=== PATIENT | male | born 1960 | race Caucasian/White ===

== ENCOUNTER 2021-01-28 18:37 | Emergency (ER) | payer MEDICARE, MEDICAID, SELFPAY ==
--- NOTE | 2021-01-28 18:40 | ED.SKABFB ---
HPI - Skin/Abscess/Foreign Bdy General Chief complaint: Skin/Abscess/Foreign Body Stated complaint: bump left wrist Time Seen by Provider: 01/28/21 18:40 Source: patient and RN notes reviewed History of Present Illness HPI narrative: Patient is a 60-year-old male who presents the urgent care with his caregiver with complaints of a bump to the left wrist. Caregiver states that she noticed it today after another client pointed it out. States that the nurse told him to have it evaluated. Denies of any recent fevers. They have not put anything on the area. No other acute complaints. No acute distress noted. Patient and caregiver aware of the plan of care. Some parts of this dictation were generated by voice recognition software and may contain typographical and/or grammatical inaccuracies. Related Data Home Medications Medication Instructions Recorded Confirmed amlodipine 2.5 mg tablet 2.5 mg PO DAILY 12/26/20 12/26/20 aspirin 81 mg tablet,delayed 81 mg PO DAILY 12/26/20 12/26/20 release bisacodyl 5 mg tablet,delayed 5 mg PO ONCE 12/26/20 12/26/20 release citalopram 20 mg tablet 20 mg PO DAILY 12/26/20 12/26/20 divalproex 125 mg tablet,delayed 125 mg PO Q8H 12/26/20 12/26/20 release lisinopril 40 mg tablet 40 mg PO DAILY 12/26/20 12/26/20 loratadine 10 mg capsule 10 mg PO DAILY 12/26/20 12/26/20 solifenacin 5 mg tablet 5 mg PO DAILY 12/26/20 12/26/20 Allergies Allergy/AdvReac Type Severity Reaction Status Date / Time No Known Allergies Allergy Verified 12/26/20 13:02 Review of Systems Review of Systems: CONSTITUTIONAL: Denies fever, chills, or sweats. EYES: Denies visual changes, redness, or discharge. ENT: Denies rhinorrhea, congestion, sore throat, or otalgia. CARDIOVASCULAR: Denies chest pain, palpitations, or edema. RESPIRATORY: Denies cough or dyspnea. GASTROINTESTINAL: Denies abdominal pain, nausea, vomiting, or diarrhea. GENITOURINARY: Denies dysuria or hematuria. SKIN: Reports of a lump to the left wrist. Denies rash or itching. MUSCULOSKELETAL: Denies back pain, joint pain, or myalgia. NEUROLOGIC: Denies headache, numbness, or weakness. All other systems reviewed are negative, except as documented in HPI. PMFSH Comments At the time of my signature, I reviewed and agree with the nursing past medical, surgical, social, and family history. There is no relevant family history pertinent to the patient complaint. Exam Narrative: GENERAL: This is a well-nourished, well-developed patient, in no apparent distress. HEAD: normocephalic, atraumatic. EYES: PERRL. Sclera clear/white. Vision is grossly intact. EARS: External ears normal NOSE: External nose normal with no obvious nasal discharge, nares without redness, no rhinorrhea. THROAT: Mucous membranes moist NECK: Neck supple CARDIOVASCULAR: Regular rate and rhythm without murmurs, gallops, or rubs. RESPIRATORY: Clear to auscultation. Breath sounds equal bilaterally. No wheezes, rales, or rhonchi. SKIN: Noninfected folliculitis noted to the dorsal aspect of the left wrist, scabbed. Warm, intact with no suspicious lesions or rash, good texture and turgor. NEURO: awake, alert, and oriented to person, place and time. There were no obvious focal neurologic abnormalities. EXTREMITIES: No clubbing, cyanosis, or edema. Course Vital Signs Vital signs: Vital Signs Temperature 97.9 F 01/28/21 18:49 Pulse Rate 81 01/28/21 18:49 Respiratory Rate 16 01/28/21 18:49 Blood Pressure 145/95 H 01/28/21 18:49 Pulse Oximetry 98 01/28/21 18:49 Temperature 97.9 F 01/28/21 18:49 Pulse Rate 81 01/28/21 18:49 Respiratory Rate 16 01/28/21 18:49 Blood Pressure 145/95 H 01/28/21 18:49 Pulse Oximetry 98 01/28/21 18:49 Reviewed-patient is informed that they may have pre-hypertension or hypertension based on a blood pressure reading in the department. I recommend the patient call the primary care provider listed on their discharge instructions o
[2021-01-28 18:49] VITALS: BP 145/95; PULSE 81; RESP 16; TEMP 36.6; O2SAT 98
== END 2021-01-28 19:03 | disposition home or self-care (01) ==
PROVIDERS: Emergency Provider Nurse Practitioner Family
DX: L73.9 Follicular disorder, unspecified (principal); I10 Essential (primary) hypertension
CPT/HCPCS: 99213; G0463

== ENCOUNTER 2024-08-25 00:07 | Day surgery (SDC) | payer MEDICARE, MEDICAID, SELFPAY ==
[2024-08-13 13:36] VITALS: BMI 32.0
--- NOTE | 2024-08-13 13:58 | PC.NURSE ---
Report to the Outpatient Waiting Room, entrance under the green pavilion located off [facility], at time _0630_ on date _[id number]_. Planned Procedure Time: _0830_.? Time changes happen often and if your time is changed the preop area will call you the afternoon before. - You and your visitor will be asked to self-screen and do not enter if you have any COVID symptoms. Please call surgeon if you need to reschedule. - A mask is optional within the hospital at this time. Patients may have clear liquids (water, carbonated beverages, clear teas, apple juice) until 3 hours prior to surgery with a maximum of 20 ounces. - No food from midnight until time of surgery and no smoking, or chewing tobacco (or any form of nicotine). No chewing gum, candy or mints. Take only the following medications with a SIP of water on the morning of surgery: ____Amlodipine and Citalopram____ DO NOT STOP ANY OF YOUR OTHER PRESCRIPTION MEDICATIONS PRIOR TO SURGERY EXCEPT THE FOLLOWING Hold all vitamins and supplements for 3 days per anesthesiologist. Medications to discontinue per physician Date to take last vwun___[id number]___ Please no make-up, nail algerian, hairspray, perfume, deodorant, or body powder the day of surgery.? No jewelry (including any body piercings) or valuables the day of surgery, leave them at home.? Please take a shower or bath the night before, or the morning of, surgery with an antibacterial soap.? Wear comfortable, loose fitting clothing.? - Jewelry must be removed prior to entering the operating room.? Rings and piercings that are not removed may be cut off. - The hospital will not accept responsibility for valuables.? - Please leave all valuables, including medications, at home the day of surgery. If you are going home after surgery, a licensed tanker driver must drive you home.? - NO public transportation without another adult if you receive anesthesia. - We recommend that an adult stay with you for 24 hours following discharge. - We also recommend that you do not drive, make important decision, drink alcoholic beverages, or take any drugs that were not prescribed by your health care provider for at least 24 hours after your discharge time. Follow any additional instructions given to you from your surgeon. Telephone instructions given to __Charlette custodial.__and asked if any additional questions and then verbalized understanding. Patient advised to call surgeon office or pre surgery nurse liaison [phone] if any additional questions.
--- NOTE | 2024-08-13 14:05 | PC.NURSE ---
Report to the Outpatient Waiting Room, entrance under the green pavilion located off [facility], at time _0630_ on date _[id number]_. Planned Procedure Time: _0830_.? Time changes happen often and if your time is changed the preop area will call you the afternoon before. - You and your visitor will be asked to self-screen and do not enter if you have any COVID symptoms. Please call surgeon if you need to reschedule. - A mask is optional within the hospital at this time. - No food or drink from midnight until time of surgery and no smoking, or chewing tobacco (or any form of nicotine). No chewing gum, candy or mints. Take only the following medications with a SIP of water on the morning of surgery: ___Amlodipine and Citalopram DO NOT STOP ANY OF YOUR OTHER PRESCRIPTION MEDICATIONS PRIOR TO SURGERY EXCEPT THE FOLLOWING Hold all vitamins and supplements for 3 days per anesthesiologist. Medications to discontinue per physician Date to take last twwy___[id number]___ Please no make-up, nail kyrgyz, hairspray, perfume, deodorant, or body powder the day of surgery.? No jewelry (including any body piercings) or valuables the day of surgery, leave them at home.? Please take a shower or bath the night before, or the morning of, surgery with an antibacterial soap.? Wear comfortable, loose fitting clothing.? - Jewelry must be removed prior to entering the operating room.? Rings and piercings that are not removed may be cut off. - The hospital will not accept responsibility for valuables.? - Please leave all valuables, including medications, at home the day of surgery. If you are going home after surgery, a licensed taxi cab driver must drive you home.? - NO public transportation without another adult if you receive anesthesia. - We recommend that an adult stay with you for 24 hours following discharge. - We also recommend that you do not drive, make important decision, drink alcoholic beverages, or take any drugs that were not prescribed by your health care provider for at least 24 hours after your discharge time. Follow any additional instructions given to you from your surgeon. Telephone instructions given to __Guy intermediate.__and asked if any additional questions and then verbalized understanding. Patient advised to call surgeon office or pre surgery nurse liaison [phone] if any additional questions.
--- OUTSIDE RECORDS SUMMARY | 2024-08-25 00:12 | XMS_ITS ---
Author Organization [facility] [employer] / [employer] [facility] Address [address] [place] [address] [address] Care Team Providers Care Ticket Counter Name Role Phone Francois MAR, Freddie Primary Care Provider Carmen Rodríguez Unavailable [phone] Blank Borges Unavailable [phone] Social History Sex Assigned At : Social History Observation Description Sex Assigned At Male Encounters Encounter Location Date Provider Diagnosis [facility] [employer] [place] [id number] [facility] [address] [facility] [address] [place] [address] 06/09/2024 Blank Borges Plan Of Treatment Next Appt Details Provider Name:Carmen kaba, 09/28/2024 01:00:00 PM, [facility] [facility] [address] [address], [facility] [address], [place], [address], Progress Notes * ELAN ELLISOB:1960 (64 yo M)Acc No.[id number]:06/09/2024 Patient: SOUMYA VACA Provider: MIKE MACK :1960 A ge:63 Y S ex:Male Date:06/09/2024 Address: [address] [facility] Pcp:Freddie MAR Subjective: * Chief Complaints: * * Medical History: Objective: * Vitals: Assessment: Plan: * Treatment: * Billing Information: * Visit Code: * Procedure Codes: * Electronic signature of MIKE Adams on 08/25/2024 at 12:11 AM CDT Sign off status: Pending * Provider: MIKE MACK Date: 0 06/09/2024 Generated for Savanah sahh/Marcy/Radha on: 0 08/25/2024 12:11 AM CDT
--- OUTSIDE RECORDS SUMMARY | 2024-08-25 00:12 | XMS_ITS ---
Author Organization [facility] [employer] Address [address] [place] [address] Care Team Providers Care Hematologist Name Role Phone Freddie Yu Primary Care Provider UnavailCarmen Joshua Unavailable [phone] Blank Borges Unavailable [phone] Allergies No Known Allergies REASON FOR VISIT follow up medication management Medications Medication SIG (Take, Route, Frequency, Duration) Notes Start Date End Date Status BISACODYL 5 MG TABLET *[facility] for [facility] and Interaction Alerts* 09/08/2023 Active Naproxen 500 MG Oral 09/08/2023 Act lisbet White Petrolatum External 09/08/2023 Ac tive Sodium Fluoride 1.1 % Dental Paste *[facility] for [facility]Rx and Interaction Alerts* 09/08/2023 Active Robafen *[facility] for eRX* 09/08/2023 Active MUPIROCIN CALCIUM 2 % TOPICAL CREAM *Reorder from [facility] for eRx and Interaction Alerts* 09/08/2023 Active Omeprazole 20 MG Oral for 30 Days Active Solifenacin Succinate 5 MG Oral for 30 Days Active Oyster Shell Calcium w/D 500-5 MG-MCG Oral for 30 Days Active Sodium Fluoride 5000 PPM 1.1 % Dental for 20 Days Active Citalopram Hydrobromide 20 MG 1 tablet Oral Once a day for 30 days Active amLODIPine Besylate 2.5 MG Oral for 30 Days Active Aspirin Low Dose 81 MG Oral for 30 Days Active Lisinopril 40 MG Oral for 30 Days Active Cetirizine HCl 10 MG Oral for 30 Days Active Divalproex Sodium 125 MG 2 capsules at bedtime Oral daily for 30 days Active Social History Sex Assigned At : Social History Observation Description Sex Assigned At Male Section Notes: Social History Substance Use Do you or have you ever smoked tobacco?: Never smoker How much tobacco do you smoke?: None Do you or have you ever used any other forms of tobacco or nicotine?: No Do you or have you ever used e-cigarettes or vape?: Never used electronic cigarettes What was the date of your most recent tobacco screening?: 09/08/2023 Has tobacco cessation counseling been provided?: No What is your level of alcohol consumption?: None How many years have you consumed alcohol?: 0 Do you use any illicit or recreational drugs?: No Which illicit or recreational drugs have you used?: None Have you used IV drugs?: No What is your level of caffeine consumption?: Moderate Education and Occupation What is the highest grade or level of school you have completed or the highest degree you have received?: Don't know Are you currently employed?: No Who is your employer?: No Marriage and Sexuality What is your relationship status?: Single Are you sexually active?: No How many children do you have?: 0 Home and Environment Are there any guns present in your home?: No Advance Directive Do you have an advance directive?: Yes Do you have a medical power of workers compensation defense attorney?: Yes Vital Signs Height 66.00 in 03/09/2024 Height-cm 167.64 cm 03/09/2024 Encounters Encounter Location Date Provider Diagnosis [facility] [address] [address] 03/09/2024 Blank Borges 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 continue current meds and monitor did get labs done but does not have copy, please fax copy to [phone] f/u in 3 months, earlier if concerns med: cont depakote 250mg qhs 03/09/2024 Generalized anxiety disorder (ICD-10 - F41.1) cont citalopram 20mg daily 03/09/2024 Moderate intellectual disabilities (ICD-10 - F71) supportive care 03/09/2024 Other care home (current) drug therapy (ICD-10 - Z79.899) Plan Of Treatment Medication Medication Name Sig Start Date Stop Date Notes Citalopram Hydrobromide 20 MG 1 tablet O ral Once a day for 30 days Divalproex Sodium 125 MG 2 capsules at b edtime Oral daily for 30 days Treatment Notes Assessment Notes Organic mood disorder resides at alf Katty alf not being able to talk to mom (health problems), not in routine like used to, may be having increase in behaviors/acting out, discuss support. continue current meds and monitor did get labs done but does not have copy, please fax copy to [phone] f/u in 3 months, earlier if concerns med: cont depakote 250mg qhs Generalized anxiety disorder cont citalo pram 20mg daily Moderate intellectual disabilities suppo rtive care Next Appt Details Follow Up: 3 Months, Reason: Provider Name:Carmen kaba, 09/28/2024 01:00:00 PM, [address], [place] [address], [place], [address], Progress Notes * ELAN ELLISOB:1960 (63 yo M)Acc No.[id number]:03/09/2024 Patient: Luba NORMAN SOUMYA Provider: MIKE MACK :1960 A ge:63 Y S ex:Male Date:03/09/2024 Address:[address] [place], [place] [address] Subjective: * Chief Complaints: * 1 . Follow up medication management. * HPI: H istory of Presenting Problem: 63 y/o male presents to follow up for depression, anxiety and intellectual disability. He resides at a alf. Associated past symptoms of verbal aggression, irritability, anxiety, biting self. Hx of talking to self that seems to be mistaken by new staff for hallucinations. Likes to watch ge girls. He says he is pretty good . Denies sad or worried. I'm happy . Sleep good. Denies causing trouble. Staff: he likes to go in the refrigerator and get stuff open and leave the wrappers out. We have talked about it and think have understanding but he does it again. He will skip shower, and if staff ask he will sometimes change his clothes and put cologne on like he took a bath. That's mostly it. No aggression. hasn't been able to talk to his mom lately as she is going through health problems. he says happy, but think he is probably missing h is mom. medical: had PCP appt and had labs done. G eneral Follow Up: ongoing notes: PCP labs 02/11/23, lipid HDL 36 LDL 116, CMP-glucose 88, CBC WNL, TSH 1.52 02/12/22 lipid panel, CMP-glucose 77.3 depakote 14.7 does not understand questions r/t psychosis; at one point thought hallucinations, but then determined not to be. 01/08/23 (prior visit) restarted low dose abilify last visit for behaviors, aggression, possible, hallucinations/unclear, and sad. 01/08 Staff report they were upset about adding abilify as supervisor shearing brought him last time and went by mostly by what one staff member was saying, exaggerating, and then supervisor shearing told them he saw himself. They had meeting after felt like they are punishing him for things happening in the house and reactions and new staff. She reports been working on these things for years. Was no worse. The supervisor shearing and staff person are no longer there. And considering all the things going on at the house, thinks he was doing ok. Dad in September 2021. * ROS: P sychiatric: Comments Neri OKEEFE for details. * Medical History: P roblems: Generalized anxiety disorder, Hallucinations, Intellectual functioning disability, Mental retardation, Obesity, Organic mood disorder, Recurrent major depressive episodes, mild, ,. * Surgical History: D enies Past Surgical History. * Hospitalization/Major Diagno stic Procedure: D enies Past Hospitalization. * Family History: unavailable. * Social History: M igrated Social History: M igrated Social History: Alcohol Intake: None 04/06/2018,Tobacco Years: Never smoker 04/06/2018. S ocial History Substance Use Do you or have you ever smoked tobacco?: Never smoker How much tobacco do you smoke?: None Do you or have you ever used any other forms of tobacco or nicotine?: No Do you or have you ever used e-cigarettes or vape?: Never used electronic cigarettes What was the date of your most recent tobacco screening?: 09/08/2023 Has tobacco cessation counseling been provided?: No What is your level of alcohol consumption?: None How many years have you consumed alcohol?: 0 Do you use any illicit or recreational drugs?: No Which illicit or recreational drugs have you used?: None Have you used IV drugs?: No What is your level of caffeine consumption?: Moderate Education and Occupation What is the highest grade or level of school you have completed or the highest degree you have received?: Don't know Are you currently employed?: No Who is your employer?: No Marriage and Sexuality What is your relationship status?: Single Are you sexually active?: No How many children do you have?: 0 Home and Environment Are there any guns present in your home?: No Advance Directive Do you have an advance directive?: Yes Do you have a medical power of workers compensation defense attorney?: Yes. * Medications: T aking amLODIPine Besylate 2.5 MG Tablet Oral , Taking Cetirizine HCl 10 MG Tablet Oral , Taking Aspirin Low Dose 81 MG Tablet Chewable Oral , Taking Lisinopril 40 MG Tablet Oral , Taking Omeprazole 20 MG Capsule Delayed Release Oral , Taking Solifenacin Succinate 5 MG Tablet Oral , Taking Oyster Shell Calcium w/D 500-5 MG-MCG Tablet Oral , Taking Sodium Fluoride 5000 PPM 1.1 % Paste Dental , Taking MUPIROCIN CALCIUM 2 % TOPICAL CREAM , Notes to Pharmacist: *Reorder from [facility] for eRx and Interaction Alerts*, Taking BISACODYL 5 MG TABLET , Notes to Pharmacist: *Reorder from [facility] for eRx and Interaction Alerts*, Taking Naproxen 500 MG Tablet Oral , Taking White Petrolatum Ointment External , Taking Sodium Fluoride 1.1 % Dental Paste , Notes to Pharmacist: *Reorder from [facility] for eRx and Interaction Alerts*, Taking Robafen , Notes to Pharmacist: *Pick strength-form from [facility] for eRX*, Taking Divalproex Sodium 125 MG Capsule Delayed Release Sprinkle 2 capsules at bedtime Oral daily , Taking Citalopram Hydrobromide 20 MG Tablet 1 tablet Oral Once a day * Allergies: N .K.D.A. Objective: * Vitals: H t: 66.00 in, Ht-cm: 167.64 cm. * Examination: P sychiatry: C onstitutional: General Appearance alert, c lean, B ehavior: c ooperative, c michel ( squints) Psychiatric: Speech: is dysarthric Thought Processes g oal-directed thought process ( distractable) Thought Content: N o suicidal ideations Abnormal or Psychotic thoughts n o hallucinations Mood: euthymic Affect: c ongruent to thought content Insight: is unaware of psychiatric problems Judgment: i mpaired Orientation: o riented to person. Assessment: * Assessment: 1. O rganic mood disorder - F06.30 (Primary) 2 . G eneralized anxiety disorder - F41.1 3 . M oderate intellectual disabilities - F71 4 .?Other supervisor intermediates (current) drug therapy - Z79.899 Plan: * Treatment: 2. G eneralized anxiety disorder Refill Citalopram Hydrobromide Tablet, 20 MG, 1 tablet, Oral, Once a day, 30 days, 30 Tablet, Refills 2. Notes: cont citalopram 20mg daily 3. M oderate intellectual disabilities Notes: supportive care * Procedure Codes: G 8510 NEG SCR D PT NOT ELIG F/U/PLN DOC * Follow Up: 3 Months * Billing Information: * Visit Code: 28167 OFFICE OUTPATIENT VISIT 25 MINUTES DETAILED HISTORY AND EXAM/MODERATE MEDICAL DECISION MAKING. * Procedure Codes: G8510 NEG SCR D PT NOT ELIG F/U/PLN DOC. * Sign off status: Completed true * Provider: MIKE MACK Date: Generated for Savanah shah/Marcy/Radha on: 0 08/25/2024 12:12 AM CDT History and Physical Notes * Examination Category Sub-Category Detail Notes Category Not es Psychiatry Constitutional: General Appearance alert, clean, Behavior: cooperative, calm (squints) Psychiatric: Speech: is dysarthric Thought Processes goal-directed thought process (distractable) Thought Content: No suicidal ideations Abnormal or Psychotic thoughts no hallucinations Mood: euthymic Affect: congruent to thought content Insight: is unaware of psychiatric problems Judgment: impaired Orientation: oriented to person
--- OUTSIDE RECORDS SUMMARY | 2024-08-25 00:12 | XMS_ITS | Clinical Summary ---
Author Organization [facility] Address [address] [place] [address] Phone Care Team Providers Care Senior Budget Analyst Name Role Phone Alejandra Stevens October PAC Unavailable [phone] Freddie Parrish PAC Primary Care Provider Allergies No known active allergies Medications citalopram (CELEXA) 20 MG Tablet Take 20 mg by mouth daily. 11/06/19 17 Active divalproex (DEPAKOTE SPRINKLE) 125 MG Capsule Delayed Release Sprinkle Take 250 mg by mouth nightly. 11/06/19 17 Active aspirin 81 MG Chewable Tablet Take 1 Tab by mouth daily. 100 Tab 12/14/19 17 Active lisinopril (PRINIVIL, ZESTRIL) 40 MG Tablet Take 1 Tab by mouth daily. 30 Tab 6 12/26/19 17 Active Calcium Carbonate-Vitamin D (OYSTER SHELL CALCIUM/D) 500-200 MG-UNIT Tablet Take 1 Tab by mouth 3 times daily. 90 Tab 5 01/09/20 17 Active solifenacin (VESICARE) 5 MG Tablet Take 1 Tab by mouth daily. 30 Tab 5 01/09/20 17 Active amLODIPine (NORVASC) 2.5 MG TabletIndications :Essential hypertension Take 1 Tab by mouth daily. 30 Tab 3 11/11/19 18 Active guaiFENesin (ROBITUSSIN) 100 MG/5ML Syrup Take 10 mL by mouth every 4 hours as needed. Active White Petrolatum (WHITE PETROLEUM) Gel APPLY TOPICALLY TO AFFECTED AREA 2 TIMES A DAY NEEDED *MAX 2 APPL/24 HRS- CALL MD IF SYMPTOMS PERSIST >48 HRS* 368 g 10 07/07/19 20 Active bisacodyl EC (DULCOLAX) 5 MG Tablet Delayed Response Take 5 mg by mouth daily as needed. Take 2 tablets by mouth 1x w/ 8 ox water as needed *do not chewif no BM, may repaet in 24 hrs, max doeses/ 48 hours & call MD* Active bismuth subsalicylate (PEPTO-BISMOL) 262 MG/15ML Suspension Take 30 mL by mouth every 6 hours as needed. Take 30 ml by mouth as needed for each loose stool / upset stomach *max 8 doses / 24 hours- notify MD is symptoms persist <48 hours Active diphenhydrAMINE (BENADRYL) 25 MG Capsule Take 25 mg by mouth every 6 hours as needed. Take 1 capsule by mouth every 6 hours as needed for cold symptoms / minor allergic reactions * max 4 doses/ 24 hours- call MD if symptoms persist > 48 h ours Active acetaminophen (TYLENOL) 325 MG Tablet Take 325 mg by mouth every 4 hours as needed. Take 2 tablets by mouth every 4 hours as needed for MANN/Mild pain / fever * max 6 doses/ 24 hours - if persists>48 hours notify MD Active aluminum & magnesium hydroxide-simethi cone (MAALOX, MYLANTA) 200-200-20 MG/5ML Suspension Take 30 mL by mouth every 6 hours as needed. Take 30 ml by mouth very 4 hours s needed for indigestion* max 6 doses / 24 hours- call MD if symptoms persist > 48 hours Active Neomycin-Bacitrac in-Polymyxin (HCA TRIPLE ANTIBIOTIC OINTMENT EX) by Apply externally route. Apply topically to minor wounds twice daily as needed until healed Active omeprazole (PriLOSEC) 20 MG CAPSULE DELAYED RELEASEIndication s:Pain of upper abdomen Take 1 Capsule by mouth daily. 90 Capsule 3 05/29/20 21 Active Calcium Carb-Cholecalcife rol (Oyster Shell Calcium w/D) 500-200 MG-UNIT Tablet Take by mouth. Activ e ALPRAZolam (XANAX) 0.25 MG Tablet 08/03/19 22 Active cetirizine (ZyrTEC) 10 MG TabletIndications :Chronic allergic rhinitis Take 1 Tablet by mouth daily. 90 Tablet 3 02/08/20 22 Active Sodium Fluoride 5000 PPM 1.1 % Gel 01/07/20 23 Active hydrocortisone 1 % CreamIndications: Itching Apply 2 times daily as needed for Itching. Application Site: bilateral forearms. 45 g 02/18/20 24 Active ibuprofen (MOTRIN) 800 MG TabletIndications :Left knee pain, unspecified chronicity Take 1 Tablet by mouth every 8 hours as needed for Mild or more severe pain. 90 Tablet 1 07/08/19 25 Active mupirocin (BACTROBAN) 2 % Ointment Apply 2 times daily. 06/29/19 25 Active naproxen (NAPROSYN) 500 MG Tablet Take 1 Tablet by mouth 2 times daily (with meals) for 14 days. 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 Recurrent major depressive disorder, in remissio n 07/14/2018 Mental disorder 07/14/2018 Overactive bladder 07/14/2018 Nutritional deficiency 07/14/2018 HTN (hypertension) 11/10/2017 Resolved Problems Problem Noted Date Diagnosed Date Resolved Date Age-related osteoporosis wit hout current pathological fracture 07/14/2018 02/01/2020 Encounters Date Type Department Care Team Description 08/09/2024 Telephone [facility] Primary [facility] [address] [place] [address] Freddie Parrish, PAC Results 07/12/2024 3:00 PM SHAMPOO TECHNICIAN Office Visit [facility] [place] [address] [place] [address] Katie Alexander, TONGUE AND GROOVE MACHINE FEEDER, RODEO PERFORMER Moderate intellectual disability (Primary Dx); Acute pain of left knee Discharge Disposition: Discharged to home or Selfcare 07/12/2024 Travel 07/08/2024 Telephone [facility] [address] [place] [phone] Freddie Parrish, PAC Medication Management 07/07/2024 11:45 AM SHAMPOO TECHNICIAN Ancillary Procedure [facility] [place] [address] [place] [address] Mayo Alexander PAC Sprain of left knee, unspecified ligament, initial encounter Discharge Disposition: Discharged to home or Selfcare 07/07/2024 11:05 AM SHAMPOO TECHNICIAN Urgent Care Visit [facility] [address] [place] [address] Mayo Alexander PAC Sprain of left knee, unspecified ligament, initial encounter (Primary Dx); Contusion of left knee and lower leg, initial encounter Discharge Disposition: Discharged to home or Selfcare 07/07/2024 Results Follow-Up [facility] [address] [place] [address] Mayo Alexander PAC 07/07/2024 Travel from Last 3 Months Immunizations Immunization Administration Dates Next Due Covid-19, Mrna, Lnp-s, Pf, 1 00 Mcg Or 50 Mcg Dose (MODERNA) 04/24/2021 Influenza Vaccine 03/02/2014,03/02/2013 Influenza Vaccine greater than 3 yrs 02/27/2024, 03/02/2018 Influenza Vaccine, Quadrivalent, PF 02/01,03/14/2022,03/19/2021,2016 Influenza, Injectable, Mdck,quadrivalent,with Preservative 03/26/2019 Influenza, Injectable, Quadrivalent 04/22/2016 Influenza, Seasonal, Injecta ble, Undefined 03/16/2015,02/25/2014,03/25/2013 Pneumococcal Vaccine Adult - 23 Valent 06/02/2007 TDAP Vaccine 08/12/2007 Td Vaccine (preservative free) 12/16/2018 Tetanus Vaccine 06/02/2007 Zoster Vaccine Recombinant 2023,02/20/2023 Social History Tobacco Use Types Packs/Day Years Used Date Smoking Tobacco: Never Smokeless Tobacco: Never Tobacco Cessation:Counseling Given: Not Answered Alcohol Use Standard Drinks/Week Comments No 0 (1 standard drink = 0.6 oz pur e alcohol) PHQ-2 Answer Date Recorded Total Score - Questions 1-9 0 07/03 Sexually Active Control Partners Comments Not Currently Sex and Gender Information Value Date Recorded Sex Assigned at Not on file Legal Sex Male 7:38 PM CDT Gender Identity Not on file Sexual Orientation Not on file Last Filed Vital Signs Vital Sign Reading Time Taken Comments Blood Pressure 128/82 07/12/2024 2:50 PM SHAMPOO TECHNICIAN Pulse 73 07/12/2024 2:50 PM SHAMPOO TECHNICIAN Temperature 36.7 C (98 F) 07/12/2024 2:50 PM SHAMPOO TECHNICIAN Respiratory Rate 20 07/12/2024 2:50 PM SHAMPOO TECHNICIAN Oxygen Saturation 96% 07/12/2024 2:50 PM SHAMPOO TECHNICIAN Inhaled Oxygen Concentration - - Weight 91.6 kg (202 lb) 07/12/2024 2:50 PM SHAMPOO TECHNICIAN Height 170.2 cm (5' 7 ) 07/12/2024 2:50 PM SHAMPOO TECHNICIAN Body Mass Index 31.64 07/12/2024 2:50 PM SHAMPOO TECHNICIAN Plan of Treatment Upcoming Encounters Date Type Department Care Team (Late st Contact Info) Description 09/06/2024 9:15 AM CDT Office Visit [facility] [address] [place] [address] Freddie Parrish, PAC [address] [place] [address] Health Maintenance Due Date Last Done Comments Hepatitis C Virus (HCV) Screening 1960 Immunochemical Fecal Occult Blood 2010 Pneumococcal Immunization (50+ years) (2 of 2 - PCV) 2010 06/02/2007 Colonoscopy 11/20/2023 11/19/2013 SARS-COV-2 Immunization ( season) 2024 05/07/2023, 03/14/2022, 01/11/2022, Additional history exists Cologuard 04/27/2027 04/27/2024 Colorectal Cancer Screening 04/27/2027 Td Immunization Every 10 Years (Adults With 1 Tdap) 12/16/2028 12/16/2018, 08/12/2007 Respiratory Syncytial Virus (RSV) Immunization (Adult) (1 - 1-dose 75+ series) 2035 11/19/2013 Pneumococcal Immunization Combined Discontinued 06/02/2007 PSA Discussion Completed 02/06/2022, 11/01, 11/04/2019, Additional history exists Zoster Immunization Completed 2023, Influenza Immunization Completed , 02/21/2023, 03/14/2022, Additional history exists Hepatitis B Immunization Aged Out No longer eligible based on patient's age to complete this topic Meningococcal Immunization (ACWY) Aged Out No longer eligible based on patient's age to complete this topic Rotavirus Immunization Aged Out No lo nger eligible based on patient's age to complete this topic Procedures Procedure Name Priority Date/Time Associated Diagnosis Comments XR KNEE 1 OR 2 VIEWS LEFT Stat with Interpretation 07/07/2024 11:52 AM SHAMPOO TECHNICIAN Sprain of left knee, unspecified ligament, initial encounter COLOGUARD Routine 04/27/2024 6:35 AM SHAMPOO TECHNICIAN Colon cancer screening Screening for rectal cancer PSA SCREEN Routine 02/06/2022 10:58 AM CDT Screening PSA (prostate specific antigen) [facility] COLONOSCOPY Routine 11/19/2013 from Last 3 Months or Most Recently Relevant to Health Maintenance Results * XR KNEE 1 OR 2 VIEWS LEFT (07/07/2024 11:52 AM SHAMPOO TECHNICIAN) Anatomical Region Laterality Modality LOWER EXTREMITY, knee Left Digital Ra diography 07/07/2024 12:0 6 PM SHAMPOO TECHNICIAN Impressions 07/07/2024 12:08 PM SHAMPOO TECHNICIAN IMPRESSION: No acute osseous abnormality. Mild tricompartmental osteoarthritis. Narrative 07/07/2024 12:08 PM SHAMPOO TECHNICIAN EXAM DESCRIPTION: XR KNEE 1 OR 2 VIEWS LEFT REASON FOR STUDY: Left knee pain after fall today. TECHNIQUE: AP and lateral views of the left knee COMPARISON: Left knee radiographs 06/05/2023 FINDINGS: BONES/JOINTS: No acute fracture or dislocation. Mild tricompartmental osteoarthritis. Old MCL injury. SOFT TISSUES: Within normal limits. THIS IS AN ELECTRONICALLY VERIFIED FINAL REPORT 07/07/2024 12:06 PM - Electronically signed by Freddie Lopez M.D. LB: NILAY Report ID: [id number] Reading Location: [id number] Procedure Note Freddie Lopez MD - 07/07/2024 EXAM DESCRIPTION: XR KNEE 1 OR 2 VIEWS LEFT REASON FOR STUDY: Left knee pain after fall today. TECHNIQUE: AP and lateral views of the left knee COMPARISON: Left knee radiographs 06/05/2023 FINDINGS: BONES/JOINTS: No acute fracture or dislocation. Mild tricompartmental osteoarthritis. Old MCL injury. SOFT TISSUES: Within normal limits. THIS IS AN ELECTRONICALLY VERIFIED FINAL REPORT 07/07/2024 12:06 PM - Electronically signed by Freddie Lopez M.D. LB: LB Report ID: [id number] Reading Location: [id number] IMPRESSION: No acute osseous abnormality. Mild tricompartmental osteoarthritis. Mayo Alexander [facility] DIAGNOSTIC ORDERABLES Fin al Result * COLOGUARD (04/27/2024 6:35 AM SHAMPOO TECHNICIAN) Cologuard Negative Negative [facility] Comment: NEGATIVE TEST RESULT. A negative Cologuard result indicates a low likelihood that a colorectal cancer (CRC) or advanced adenoma (adenomatous polyps with more advanced pre-malignant features) is present. The chance that a person with a negative Cologuard test has a colorectal cancer is less than 1 in 1500 (negative predictive value >99.9%) or has an advanced adenoma is less than 5.3% (negative predictive value 94.7%). These data are based on a prospective cross-sectional study of 10,000 individuals at average risk for colorectal cancer who were screened with both Cologuard and colonoscopy. (Marshall Haynes al, N Engl J Med 2014;370(14):5106-2740) The normal value (reference range) for this assay is negative. COLOGUARD RE-SCREENING RECOMMENDATION: Periodic colorectal cancer screening is an important part of preventive healthcare for asymptomatic individuals at average risk for colorectal cancer. Following a negative Cologuard result, the [place] [employer] Society and U.S. [facility]-Society Task Force screening guidelines recommend a Cologuard re-screening interval of 3 years. References: [place] [employer] Guideline for Colorectal Cancer Screening: https://www.cancer.org/cancer/eipjx-dinkuy-ovzius/kavkrahgw-ywcbljfhv-bbkoelr/ acs-recommendations.html.; Jorge GUERRERO, Glynn CHEUNG, Ly MEJIAS, Colorectal Cancer Screening: Recommendations for Physicians and Patients from the U.S. Multi-Society Task Force on Colorectal Cancer Screening , Am J Gastroenterology 2017; 112:7223-9192. TEST DESCRIPTION: Composite algorithmic analysis of stool DNA-biomarkers with hemoglobin immunoassay. Quantitative values of individual biomarkers are not reportable and are not associated with individual biomarker result reference ranges. Cologuard is intended for colorectal cancer screening of adults of either sex, 45 years or older, who are at average-risk for colorectal cancer (CRC). Cologuard has been approved for use by the U.S. FDA. The performance of Cologuard was established in a cross sectional study of average-risk adults aged 50-84. Cologuard performance in patients ages 45 to 49 years was estimated by sub-group analysis of near-age groups. Colonoscopies performed for a positive result may find as the most clinically significant lesion: colorectal cancer [4.0%], advanced adenoma (including sessile serrated polyps greater than or equal to 1cm diameter) [20%] or non- advanced adenoma [31%]; or no colorectal neoplasia [45%]. These estimates are derived from a prospective cross-sectional screening study of 10,000 individuals at average risk for colorectal cancer who were screened with both Cologuard and colonoscopy. (Marshall Haynes al, N Engl J Med 2014;370(14):4316-9970.) Cologuard may produce a false negative or false positive result (no colorectal cancer or precancerous polyp present at colonoscopy follow up). A negative Cologuard test result does not guarantee the absence of CRC or advanced adenoma (pre-cancer). The current Cologuard screening interval is every 3 years. ([place] Cancer Society and U.S. Multi-Society Task Force). Cologuard performance data in a 10,000 patient pivotal study using colonoscopy as the reference method can be accessed at the following location: www.exactlabs.com/results. Additional description of the Cologuard test process, warnings and precautions can be found at www.cologuard.com. Stool 04/27/2024 6:35 AM SHAMPOO TECHNICIAN 04/28/2024 10:11 AM SHAMPOO TECHNICIAN Freddie Parrish PAC BODY FLUIDS & STOOLS ORDERAB LES Final Result Performing Organization Address [facility] Co de Phone Number [employer] [address] [place] [address], [place] [phone] [employer] [address] [place] [address] * PSA SCREEN (02/06/2022 10:58 AM CDT) PSA SCREEN, TOTAL 0.50 <=4.00 ng/mL 02/06/2022 12:52 PM CDT [facility] Blood Venipuncture / Unknown 02/06/2022 10:58 AM CDT 02/06/2022 10:58 AM CDT Narrative [facility] - 02/06/2022 12:52 PM CDT PSA NOTE: The PSA value should be used in conjunction with information available from clinical evaluation and other diagnostic procedures. Freddie Parrish PAC CHEMISTRY ORDERABLES Final R esult Performing Organization Address [facility] Co de Phone Number [facility] [place] [address] * COLONOSCOPY (11/19/2013) Juan David Taylor DO PROCEDURE/MINOR SURGIC AL ORDERABLES Final Result from Last 3 Months or Most Recently Relevant to Health Maintenance Insurance MEDICARE [place]ICAID [place] Advance Directives Documents on File Type Date Recorded Patient Social Sciences Research Scientist Expl anation Guardian of Person 02/07/2022 2:40 PM [facility], 11/07/2021 Care Teams Senior Budget Analyst Relationship Specialty Start Date End Date Freddie Parrish, PAC [address] [place] [address] PCP - General Physician Solution Design And Analysis Manager 02/06/22 Alejandra Stevens Nahomi, PAC Physician Solution Design And Analysis Manager Physician Solution Design And Analysis Manager 09/13/21
--- OUTSIDE RECORDS SUMMARY | 2024-08-25 00:12 | XMS_ITS | Continuity of Care Document ---
Author Organization [facility] Address [address] [place] [address] Phone Care Team Providers Care Drywall Hanger Name Role Phone Mickey Franco Unavailable Unavailable Advance Directives Directive Yes / No Effective Date File Name No Information Encounters Encounter Description Practice Location Reason(s) For Visit Diagnoses Date Provider Providers Copied on Encounter [facility], [address], [place], [place], [id number], [place] tel:[phone] [facility] [place][note 2] No Information Apr-2 3-200 1 Salvador Arevalo. [address] , [address], [place], [address], [place]. tel:[phone] Family History Family Member Type Diagnosis Age At Onset No Information Payers Payer name Insurance type Covered democrat ID Authoriza tion(s) Medicare [facility] [id number] Medicaid [facility] [id number] Social History Type Description Quantity Date Captured Comments Sex Male Smoking Status No Information Chief Complaint And Reason For Visit No Information Reason For Referral Reason For Referral No Information History Of Present Illness Encounter Date Complaint History Of Prese nt Illness No Information Functional Status Date Functional Assessmen t No Information Instructions Date Instruction Additional Infor mation No Information Assessments Type Assessment Date No Information Patient Care Teams Name Effective Dates (start - stop) Status Members No Information
--- OUTSIDE RECORDS SUMMARY | 2024-08-25 00:12 | XMS_ITS | Encounter Summary ---
Author Organization [facility] Address [address] [place] [address] Phone Care Team Providers Care Technical Solution Architect Name Role Phone Alejandra Stevens October PAC Unavailable Freddie Parrish PAC Primary Care Provider Encounter Details Date Type Department Care Team (Late Contact Info) Description 07/07/2024 Results Follow-Up [facility] [place] [address] [place] [address] Mayo Alexander, [address] [address] Social History Tobacco Use Types Packs/Day Years Used Date Smoking Tobacco: Never Smokeless Tobacco: Never Alcohol Use Standard Drinks/Week Comments No 0 (1 standard drink = 0.6 oz pur e alcohol) PHQ-2 Answer Date Recorded Total Score - Questions 1-9 0 02/02 Sexually Active Control Partners Comments Not Currently Sex and Gender Information Value Date Recorded Sex Assigned at Not on file Legal Sex Male 7:38 PM CDT Gender Identity Not on file Sexual Orientation Not on file documented as of this encounter Plan of Treatment Upcoming Encounters Date Type Department Care Team (Late st Contact Info) Description 09/06/2024 9:15 AM CDT Office Visit [facility] - [place] [address] [place] [address] Freddie Parrish, PAC [address] [place] [address] documented as of this encounter Visit Diagnoses Not on filedocumented in this encounter Additional Health Concerns Assessment Noted Time PHQ-9 Depression Total Score: 0 03/01/20 24 9:08 AM CDT documented as of this encounter Care Teams Technical Solution Architect Relationship Specialty Start Date End Date Freddie Parrish, PAC [address] [place] [address] PCP - General Physician Vegetable I Farmworker 02/06/22 Alejandra Stevens, MAGGIE Physician Vegetable I Farmworker Physician Vegetable I Farmworker 09/13/21 documented as of this encounter
--- OUTSIDE RECORDS SUMMARY | 2024-08-25 00:13 | XMS_ITS ---
Author Organization [facility] [email or web address] Address [address] [place] [address] Care Team Providers Care Broiler Manager Name Role Phone Freddie Yu Primary Care Provider Carmen Rodríguez Unavailable [phone] Allergies No Known Allergies REASON FOR VISIT follow up medication eval Medications Medication SIG (Take, Route, Frequency, Duration) Notes Start Date End Date Status Citalopram Hydrobromide 20 MG 1 tablet Oral Once a day for 30 days Active Sodium Fluoride 1.1 % Dental Paste *Reorder from [facility] for eRx and Interaction Alerts* 09/08/2023 Active amLODIPine Besylate 2.5 MG Oral for 30 Days Active Robafen *Pick strength-f orm from [facility] for eRX* 09/08/2023 Active Divalproex Sodium 125 MG 2 capsules at bedtime Oral daily for 30 days Active MUPIROCIN CALCIUM 2 % TOPICAL CREAM *Reorder from [facility] for eRx and Interaction Alerts* 09/08/2023 Active Sodium Fluoride 5000 PPM 1.1 % Dental for 20 Days Active Naproxen 500 MG Oral 09/08/2023 Act lisbet BISACODYL 5 MG TABLET *[facility] and Interaction Alerts* 09/08/2023 Active White Petrolatum External 09/08/2023 Ac tive Oyster Shell Calcium w/D 500-5 MG-MCG Oral for 30 Days Active Solifenacin Succinate 5 MG Oral for 30 Days Active Aspirin Low Dose 81 MG Oral for 30 Days Active Omeprazole 20 MG Oral for 30 Days Active Lisinopril 40 MG Oral for 30 Days Active Cetirizine HCl 10 MG Oral for 30 Days Active Social History Sex Assigned At : [...] Do you have a medical power of deputy prosecuting attorney?: Yes Vital Signs Blood pressure systolic 130 mm Hg 06/18/19 25 Blood pressure diastolic 84 mm Hg 025 Heart Rate 66 /min 06/18/2024 Height 66.00 in 06/18/2024 Weight 203 lbs 06/18/2024 BMI 32.76 kg/m2 06/18/2024 Height-cm 167.64 cm 06/18/2024 Weight-kg 92.08 kg 06/18/2024 Encounters Encounter Location Date Provider Diagnosis [facility] [address] [place] [address] 06/18/2024 Carmen Pandey 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 ; Generalized anxiety disorder F41.1 ; Moderate intellectual disabilities F71 and Other watermelon inspector (current) drug therapy Z79.899 Assessments Encounter Date Diagnosis (ICD Code) Assessment Notes Treatment Notes Treatment Clinical Notes Section Notes 06/18/2024 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) resides [facility] continue current meds and monitor f/u in 3 months, earlier if concerns med: cont depakote 250mg qhs 06/18/2024 Generalized anxiety disorder (ICD-10 - F41.1) cont citalopram 20mg daily 06/18/2024 Moderate intellectual disabilities (ICD-10 - F71) supportive care 06/18/2024 Other fpc (current) drug therapy (ICD-10 - Z79.899) Plan Of Treatment Medication Medication Name Sig Start Date Stop Date Notes Citalopram Hydrobromide 20 MG 1 tablet O ral Once a day for 30 days Divalproex Sodium 125 MG 2 capsules at b edtime Oral daily for 30 days Treatment Notes Assessment Notes Organic mood disorder resides at [facility] continue current meds and monitor f/u in 3 months, earlier if concerns med: cont depakote 250mg qhs Generalized anxiety disorder cont citalo pram 20mg daily Moderate intellectual disabilities suppo rtive care Next Appt Details Follow Up: 3 Months, Reason: Provider Name:Carmen kaba, 09/28/2024 01:00:00 PM, [address] [address], [address], [address], Progress Notes * ELAN ELLISOB:1960 (64 yo M)Acc No.[id number]:06/18/2024 Patient: SOUMYA VACA Provider: Babs Pandey :1960 A ge:64 Y S ex:Male Date:06/18/2024 Address:[address] [place] [address] Pcp:Freddie MAR Subjective: * Chief Complaints: * F ollow up medication eval * HPI: H istory of Presenting Problem: 64 y/o male presents to follow up for depression, anxiety and intellectual disability. He resides at a shelter. Associated past symptoms of verbal aggression, irritability, anxiety, biting self. Hx of talking to self that seems to be mistaken by new staff for hallucinations. Likes to watch ge girls. He says he is pretty good . He says no changes right now . Reports his mood has been good, he has no worries or concerns. Sleeping well, not too tired. Restful sleep. APpetite good, no concerns with medication side effects. Staff deny concerns with behaviors or side effects of medications. He has been working on maintaining hygiene schedule, sometimes doesn't want to bath, no problematic. Not been biting his finger when upset. Labs in January, reviewed. G eneral Follow Up: ongoing notes: PCP [...] they were upset about adding abilify as elevator constructor supervisor brought him last time and went by mostly by what one staff member was saying, exaggerating, and then elevator constructor supervisor told them he saw himself. They had meeting after felt like they are punishing him for things happening in the house and reactions and new staff. She reports been working on these things for years. Was no worse. The elevator constructor supervisor and staff person are no longer there. And considering all the things going on at the house, thinks he was doing ok. Dad in September 2021. * ROS: G eneral / Constitutional: Patient denies f atigue, sleep disturbance. ? G astrointestinal: Patient denies v omiting, change in bowel habits. ? P sychiatric: Patient denies a uditory / visual hallucinations, depressed mood, psychosis, irritability. C iva He [facility] for details. P erformance Met: N ormal blood pressure reading documented, follow-up not required ( G8783). * Medical History: * Surgical History: D enies Past Surgical History * Hospitalization/Major Diagno stic Procedure: D enies Past Hospitalization * Family History: unavailable. * Social History: S ocial History Substance Use Do you [...] Do you have a medical power of deputy prosecuting attorney?: Yes. * Medications: T akingDivalproex Sodium 125 MG Capsule Delayed Release Sprinkle 2 capsules at bedtime Oral daily Citalopram Hydrobromide 20 MG Tablet 1 tablet Oral Once a day amLODIPine Besylate 2.5 MG Tablet Oral Cetirizine HCl 10 MG Tablet Oral Aspirin Low Dose 81 MG Tablet Chewable Oral Lisinopril 40 MG Tablet Oral Omeprazole 20 MG Capsule Delayed Release Oral Solifenacin Succinate 5 MG Tablet Oral Oyster Shell Calcium w/D 500-5 MG-MCG Tablet Oral Sodium Fluoride 5000 PPM 1.1 % Paste Dental MUPIROCIN CALCIUM 2 % TOPICAL CREAM , Notes to Pharmacist: *Reorder from [facility] for eRx and Interaction Alerts*BISACODYL 5 MG TABLET , Notes to Pharmacist: *Reorder from [facility] for eRx and Interaction Alerts*Naproxen 500 MG Tablet Oral White Petrolatum Ointment External Sodium Fluoride 1.1 % Dental Paste , Notes to Pharmacist: *Reorder from [facility] for eRx and Interaction Alerts*Debbie , Notes to Pharmacist: *Pick strength-form from [facility] for eRX*Medication List reviewed and reconciled with the patientTaking Divalproex Sodium 125 MG Capsule Delayed Release Sprinkle 2 capsules at bedtime Oral daily Taking Citalopram Hydrobromide 20 MG Tablet 1 tablet Oral Once a day Taking amLODIPine Besylate 2.5 MG Tablet Oral Taking Cetirizine HCl 10 MG Tablet Oral Taking Aspirin Low Dose 81 MG Tablet Chewable Oral Taking Lisinopril 40 MG Tablet Oral Taking Omeprazole 20 MG Capsule Delayed Release Oral Taking Solifenacin Succinate 5 MG Tablet Oral Taking Oyster Shell Calcium w/D 500-5 MG-MCG Tablet Oral Taking Sodium Fluoride 5000 PPM 1.1 % Paste Dental Taking MUPIROCIN CALCIUM 2 % TOPICAL CREAM , Notes to Pharmacist: *Reorder from [facility] for eRx and Interaction Alerts*Taking BISACODYL 5 MG TABLET , Notes to Pharmacist: *Reorder from [facility] for eRx and Interaction Alerts*Taking Naproxen 500 MG Tablet Oral Taking White Petrolatum Ointment External Taking Sodium Fluoride 1.1 % Dental Paste , Notes to Pharmacist: *Reorder from [facility] for eRx and Interaction Alerts*Taking Robafen , Notes to Pharmacist: *Pick strength-form from [facility] for eRX*Medication List reviewed and reconciled with the patient * Allergies: N .K.D.A.no[Allergies Verified] Objective: * Vitals: B P:130/84mm Hg, HR:66/min, Wt:203lbs, Wt-k.08 kg, Ht: 66.00 in, Ht-cm: 167.64 cm, BMI:32.76Index, Body Surface Area: 2.07. * Examination: P sychiatry: C onstitutional: General [...] oderate intellectual disabilities - F71 4 .?Other watermelon inspector (current) drug therapy - Z79.899 Plan: * Treatment: 2. G eneralized anxiety disorder Refill Citalopram Hydrobromide Tablet, 20 MG, 1 tablet, Oral, Once a day, 30 days, 30 Tablet, Refills 2. Notes: cont citalopram 20mg daily 3. M oderate intellectual disabilities Notes: supportive care * Procedure Codes: G 8783 NORMAL BP READING DOC F/U NOT [id number] VISIT COMPLEXITY INHERENT TO ONGOING CARE RELATED TO A PATIENT'S SINGLE, SERIOUS CONDITION OR A COMPLEX CONDITION * Follow Up: 3 Months * Billing Information: * Visit Code: 59642 OFFICE OUTPATIENT VISIT 25 MINUTES DETAILED HISTORY AND EXAM/MODERATE MEDICAL DECISION MAKING. * Procedure Codes: G8783 NORMAL BP READING DOC F/U NOT RQR. G2211 VISIT COMPLEXITY INHERENT TO ONGOING CARE RELATED TO A PATIENT'S SINGLE, SERIOUS CONDITION OR A COMPLEX CONDITION. * QUALITY ASSURANCE ENGINEER Electronically co-signed by Haryr Nunez MD on 06/21/2024 at 03:51 PM ICT QUALITY ASSURANCE ENGINEER Sign off status: Completed true * Provider: Babs Pandey Date: 0 06/18/2024 Generated for Savanah shah/Marcy/Radha on: 0 08/25/2024 [...]
--- NOTE | 2024-08-25 06:46 | P.HPUP_ITS ---
History and Physical Update Update Date/Time: 08/25/24 06:46 Patient seen and examined in pre-operative holding area. No interval change in medical history or symptoms per caustic strength inspector staff. guardian and caustic strength inspector has signed consent desiring to proceed with excision right upper back lesion . Reviewed procedure, post-op expectations and risks including but not limited to bleeding, infection, recurrence, undesirebale cosmetic appearance.
--- NOTE | 2024-08-25 06:48 | P.HP_ITS ---
History of Present Illness History of Present Illness Chief complaint: BCCA right upper back Narrative: Patient seen and examined in pre-operative holding area. No interval change in medical history or symptoms per oem sales manager staff. guardian has signed consent desiring to proceed with excision right upper back lesion . Reviewed procedure, post-op expectations and risks including but not limited to bleeding, infection, recurrence, undesirebale cosmetic appearance. Review of Systems Review of Systems: All systems reviewed & are unremarkable except as noted in HPI and below PMFSH Social History Social History Smoking status: Never smoker Alcohol intake: never Substance use: never Living arrangements: intermediate Meds Home Medications and Allergies Home Medications ?Medication ?Instructions ?Recorded ?Confirmed ?Type amlodipine 2.5 mg tablet 2.5 mg PO DAILY 12/26/20 08/25/24 History aspirin 81 mg tablet,delayed 81 mg PO DAILY 12/26/20 08/25/24 History release (Adult Low Dose Aspirin) citalopram 20 mg tablet 20 mg PO DAILY 12/26/20 08/25/24 History lisinopril 40 mg tablet 40 mg PO DAILY 12/26/20 08/25/24 History solifenacin 5 mg tablet 5 mg PO DAILY 12/26/20 08/25/24 History cetirizine 10 mg capsule (Zyrtec) 10 mg PO DAILY PRN allergy symptoms 03/19/22 08/13/24 History omeprazole 20 mg capsule,delayed 20 mg PO DAILY 03/19/22 08/25/24 History release acetaminophen 325 mg capsule 650 mg PO Q6H PRN fever or pain 03/20/23 08/13/24 History aluminum-mag hydroxide-simethicone 30 ml PO QID 03/20/23 08/25/24 History 400 mg-400 mg-40 mg/5 mL oral susp (Jess-Lanta) bisacodyl 5 mg tablet,delayed 10 mg PO DAILY PRN constipation 03/20/23 08/13/24 History release calcium carbonate (Oyster Shell 500 mg PO BID 12/25/23 08/13/24 History Calcium) calcium 500 mg (as 1 tablet PO TID 08/13/24 08/25/24 History carbonate)-vitamin D3 10 mcg (400 unit) tablet (Calcium 500 + D) diphenhydramine HCl 25 mg capsule 25 mg PO Q6H PRN allergy symptoms 08/13/24 08/13/24 History (Allergy (diphenhydramine)) divalproex 125 mg capsule,delayed 250 mg PO HS 08/13/24 08/25/24 History release sprinkle mupirocin 2 % topical ointment 1 applic topical BID 08/13/24 08/25/24 History vit A 300 mcg-C 200 mg-E 27 1 tablet PO BID 08/13/24 08/25/24 History mg-lutein 2 mg and minerals tablet (Healthy Eyes) tramadol 50 mg tablet 50 mg PO Q6H PRN pain #12 tabs 08/25/24 Rx Allergies Allergy/AdvReac Type Severity Reaction Status Date / Time No Known Allergies Allergy Verified 08/25/24 08:07 Exam Narrative: unchnaged Assessment and Plan Assessment and plan (1) Neoplasm of uncertain behavior of skin: Code(s): D48.5 - Neoplasm of uncertain behavior of skin Status: Acute Assessment and Plan: cont as above
--- NOTE | 2024-08-25 06:48 | W.PM.PROC2 ---
Procedure Note - Detailed Date of Procedure 08/25/24 Pre-op Diagnosis BCC right upper back Post-op Diagnosis Same Procedure Performed right upper back lesion excisiion Surgeon Prashant Cordero MD Trash Collector Truck Driver queenie mensah pa-c Anesthesia MAC Description of Procedure Patient was seen in the preoperative area where the site was marked. Consent form had previously been signed his mother with medical decision making ability. Patient was taken back to the operating room on the stretcher in the left lateral decubitus position. Time-out was performed with Anesthesia, surgeon, and staff agreeing on patient's name, site, and surgery to be performed. SCDs were placed on the lower extremities and inflated. Antibiotics were given IV. After anesthesia administered sedation I injected 6 cc of 1% lidocaine with epinephrine and 0.5% Marcaine plain for local anesthesia. The area was prepped and draped in the usual sterile fashion. I proceeded with making an elliptical incision around the lesion with 6 mm margins of normal-appearing tissue through skin and dermis with a 15 blade scalpel. The diameter of excision site with margins measured 2.2 cm. A I extended this incision superiorly and inferiorly resecting further tissue that would have resulted in excess tissue and dog ears. I irrigated with normal saline. Hemostasis with Bovie cautery. I undermined the skin edges and proceeded with closure using 3-0 Vicryl suture and 3-0 Monocryl suture. The length of closure measured 2.7 cm. A dressing of Mastisol, Steri-Strips, 4 x 4 and a pressure dressing was then applied. The patient was awakened from anesthesia and transferred to the recovery room in stable condition. Complications: None Estimated blood loss: 1 cc Disposition: Patient tolerated the procedure well and will return to his care facility later today Queenie Mensah PA-C was essential for positioning, , closure and dressing placement [facility] [place] Billing Surgery - Charge Forward: Surgery Billing ([id number] same for queenie adding )
[2024-08-25 06:57] VITALS: BP 177/102; PULSE 87; RESP 18; TEMP 36.6; O2SAT 98
[2024-08-25] MEDS: LACTATED RINGERS 1,000 ML 30 ML IV CONT (07:50)
[2024-08-25] MEDS: LIDO 1%/EPINEPHRINE 1:100,000 50 ML VIAL 20 ML INFILTRATE (08:00)
--- NOTE | 2024-08-25 08:09 | P.PNAN_ITS ---
Anes - Initial Pre Proc Eval Procedure: Operation Date: 08/25/24 08:30 Proposed Procedures p Excision Basal Cell Carcinoma Right Upper Back - Prashant Cordero MD Date/Time: 08/25/24 08:09 Surgeon: Prashant Cordero MD Pre Op Diagnosis: BCCA right upper back Patient Data Age: 64 Gender: M Height: 1.7 m Weight: 90.3 kg Last Vital Signs Temp 97.9 F 08/25/24 06:57 Pulse 87 08/25/24 06:57 Resp 18 08/25/24 06:57 BP 177/102 H 08/25/24 06:57 Pulse Ox 98 08/25/24 06:57 O2 Del Method Room Air 08/25/24 06:57 Allergies Allergy/AdvReac Type Severity Reaction Status Date / Time No Known Allergies Allergy Verified 08/25/24 08:07 Home Medications ?Medication ?Instructions ?Recorded ?Confirmed ?Type amlodipine 2.5 mg tablet 2.5 mg PO DAILY 12/26/20 08/25/24 History aspirin 81 mg tablet,delayed 81 mg PO DAILY 12/26/20 08/25/24 History release (Adult Low Dose Aspirin) citalopram 20 mg tablet 20 mg PO DAILY 12/26/20 08/25/24 History lisinopril 40 mg tablet 40 mg PO DAILY 12/26/20 08/25/24 History solifenacin 5 mg tablet 5 mg PO DAILY 12/26/20 08/25/24 History cetirizine 10 mg capsule (Zyrtec) 10 mg PO DAILY PRN allergy symptoms 03/19/22 08/13/24 History omeprazole 20 mg capsule,delayed 20 mg PO DAILY 03/19/22 08/25/24 History release acetaminophen 325 mg capsule 650 mg PO Q6H PRN fever or pain 03/20/23 08/13/24 History aluminum-mag hydroxide-simethicone 30 ml PO QID 03/20/23 08/25/24 History 400 mg-400 mg-40 mg/5 mL oral susp (Jess-Lanta) bisacodyl 5 mg tablet,delayed 10 mg PO DAILY PRN constipation 03/20/23 08/13/24 History release calcium carbonate (Oyster Shell 500 mg PO BID 12/25/23 08/13/24 History Calcium) calcium 500 mg (as 1 tablet PO TID 08/13/24 08/25/24 History carbonate)-vitamin D3 10 mcg (400 unit) tablet (Calcium 500 + D) diphenhydramine HCl 25 mg capsule 25 mg PO Q6H PRN allergy symptoms 08/13/24 08/13/24 History (Allergy (diphenhydramine)) divalproex 125 mg capsule,delayed 250 mg PO HS 08/13/24 08/25/24 History release sprinkle mupirocin 2 % topical ointment 1 applic topical BID 08/13/24 08/25/24 History vit A 300 mcg-C 200 mg-E 27 1 tablet PO BID 08/13/24 08/25/24 History mg-lutein 2 mg and minerals tablet (Healthy Eyes) tramadol 50 mg tablet 50 mg PO Q6H PRN pain #12 tabs 08/25/24 Rx Patient hx anesthesia problems: none Family hx anesthesia problems: none Results Review: All pre-operative results and documents have been reviewed as part of the pre- operative evaluation. [facility] Social History Social History Smoking status: Never smoker Alcohol intake: never Substance use: never Living arrangements: senior living Anes - Eval Final PreProcedure Day of Procedure 08/25/24 08:09 Patient weight: obese Lungs: normal air movement Airway: Mallampati scale and special considerations (Missing upper teeth. ) Neurological: alert and oriented Last oral intake: >/= 8 hours ASA classification: III Emergent: no Anesthetic plan: proceed Anesthesia type and monitoring: general GIVS and standard monitoring Results Review: All pre-operative results and documents have been reviewed as part of the pre- operative evaluation. Mod int disability, pt lives in senior living. HTN by hx. Informed Consent: The patient's anesthetic plan and its attendant risks and benefits were discussed with the patient/family/POA. Questions were solicited and answers provided to the satisfaction of the patient/family/POA.
[2024-08-25] MEDS: ceFAZolin 2 GM/D5W 50 ML 2 GM/50 ML BAG IVPB (08:36)
[2024-08-25 08:56] VITALS: PULSE 68; RESP 20; O2SAT 99
== END 2024-08-25 09:21 | disposition home or self-care (01) ==
PROVIDERS: Visit Provider Plastic Surgery
PROC: (CPT 11603; principal; 2024-08-25 08:30)
DX: C44.519 Basal cell carcinoma of skin of other part of trunk (principal); I10 Essential (primary) hypertension; E66.9 Obesity, unspecified; Z68.31 Body mass index [BMI] 31.0-31.9, adult; Z79.82 Long term (current) use of aspirin; Z79.891 Long term (current) use of opiate analgesic
CPT/HCPCS: 11603; 12032; 88305; J0690; J2003; J2004; J2704; J3010; J7120

== ENCOUNTER 2025-02-17 17:01 | Emergency (ER) | payer MEDICARE, MEDICAID, SELFPAY ==
--- NOTE | ~2025-02-17 | US_ITS ---
EXAMINATION: US venous doppler [facility] DATE: 02/17/2025 17:34 INDICATION: Left lower limb swelling TECHNIQUE: Grayscale ultrasound images without and with compression and Doppler ultrasound images of the left lower extremity veins were obtained. COMPARISON: None. FINDINGS: The visualized portions of left common femoral vein, profunda (deep) femoral vein, femoral vein, popliteal vein, peroneal veins, posterior tibial veins, gastrocnemius vein and greater saphenous vein outflow are patent. IMPRESSION: 1. No deep venous thrombosis in the left lower limb. Reviewed, dictated and finalized at location A.
[2025-02-17 17:30] VITALS: BP 154/87; PULSE 74; RESP 18; TEMP 36.7; O2SAT 97
[2025-02-17 19:47] VITALS: BP 158/93; PULSE 86; RESP 16; TEMP 37; O2SAT 95
--- NOTE | 2025-02-17 19:49 | ED.GENADULT ---
HPI - General Adult General Chief complaint: Unspecified Stated complaint: LEG SWELLING Time Seen by Provider: 02/17/25 19:42 History of Present Illness HPI narrative: Patient presenting here with of the swelling with concern for possible DVT sent here for DVT ultrasound by Ortho Related Data Home Medications ?Medication ?Instructions ?Recorded ?Confirmed ?Last Taken ?Type amlodipine 2.5 mg tablet 2.5 mg PO DAILY 12/26/20 01/20/25 08/25/24 History aspirin 81 mg tablet,delayed 81 mg PO DAILY 12/26/20 01/20/25 08/19/24 History release (Adult Low Dose Aspirin) citalopram 20 mg tablet 20 mg PO DAILY 12/26/20 01/20/25 08/25/24 History lisinopril 40 mg tablet 40 mg PO DAILY 12/26/20 01/20/25 08/24/24 History solifenacin 5 mg tablet 5 mg PO DAILY 12/26/20 01/20/25 08/24/24 History cetirizine 10 mg capsule (Zyrtec) 10 mg PO DAILY PRN allergy symptoms 03/19/22 01/20/25 Unknown History omeprazole 20 mg capsule,delayed 20 mg PO DAILY 03/19/22 01/20/25 08/24/24 History release acetaminophen 325 mg capsule 650 mg PO Q6H PRN fever or pain 03/20/23 01/20/25 Unknown History aluminum-mag hydroxide-simethicone 30 ml PO QID 03/20/23 01/20/25 08/22/24 History 400 mg-400 mg-40 mg/5 mL oral susp (Jess-Lanta) bisacodyl 5 mg tablet,delayed 10 mg PO DAILY PRN constipation 03/20/23 01/20/25 Unknown History release calcium carbonate (Oyster Shell 500 mg PO BID 12/25/23 01/20/25 Unknown History Calcium) calcium 500 mg (as 1 tablet PO TID 08/13/24 01/20/25 08/22/24 History carbonate)-vitamin D3 10 mcg (400 unit) tablet (Calcium 500 + D) diphenhydramine HCl 25 mg capsule 25 mg PO Q6H PRN allergy symptoms 08/13/24 01/20/25 Unknown History (Allergy (diphenhydramine)) divalproex 125 mg capsule,delayed 250 mg PO HS 08/13/24 01/20/25 08/24/24 History release sprinkle mupirocin 2 % topical ointment 1 applic topical BID 08/13/24 01/20/25 08/24/24 History vit A 300 mcg-C 200 mg-E 27 1 tablet PO BID 08/13/24 01/20/25 08/22/24 History mg-lutein 2 mg and minerals tablet (Healthy Eyes) Allergies Allergy/AdvReac Type Severity Reaction Status Date / Time No Known Allergies Allergy Verified 01/20/25 13:09 Review of Systems Review of Systems: All systems reviewed & are unremarkable except as noted in HPI and below PMFSH Past Medical History Medical History (Updated 02/18/25 @ 00:00 by Raghav An) Ankle fracture Surgical History Surgical History (Updated 01/20/25 @ 13:11 by Cortney Potter CMA) History of ankle surgery Social History Social History Smoking status: Never smoker Alcohol intake: never Substance use: never Living arrangements: shelter Exam Narrative: EXAMINATION OF ORGAN SYSTEMS/BODY AREAS: Constitutional: Vital signs per nursing GENERAL:[No acute distress, non-toxic appearing.] HEAD: Normal with no signs of head trauma. EYES: EOMI, conjunctiva normal ENT: Hearing grossly intact LUNGS: Nonlabored breathing. HEART: [Regular rate and rhythm] ABD: [Soft], [nontender to palpation] EXT: No obvious swelling to either leg SKIN: Some redness bilateral legs without tenderness NEURO: [Alert.] PSYCH: Normal affect Course Vital Signs Vital signs: Vital Signs Temperature 98.1 F 02/17/25 17:30 Pulse Rate 74 02/17/25 17:30 Respiratory Rate 18 02/17/25 17:30 Blood Pressure 154/87 H 02/17/25 17:30 Pulse Oximetry 97 02/17/25 17:30 Temperature 98.6 F 02/17/25 19:47 Pulse Rate 86 02/17/25 19:47 Respiratory Rate 18 02/17/25 20:00 Blood Pressure 158/93 H 02/17/25 19:47 Pulse Oximetry 95 02/17/25 19:47 Medical Decision Making [facility] [place] Narrative Medical decision making narrative: Patient presents for rule out DVT, ultrasound performed is negative, discussed with patient and highway safety engineer, stable for discharge with follow-up to with ortho Vital Signs Vital Signs: Vital Signs Temperature 98.1 F 02/17/25 17:30 Pulse Rate 74 02/17/25 17:30 Respiratory Rate 18 02/17/25 17:30 Blood Pressure 154/87 H 02/17/25 17:30 Pulse Oximetry 97 02/17/25 17:30 Temperature 98.6 F 02/17/25 19:47 Pulse Rate 86 02/17/25 19:47 Respiratory Rate 18 02/17/25 20:00 Blood Pressure 158/93 H 02/17/25 19:47 Pulse Oximetry 95 02/17/25 19:47 Discharge Plan Discharge Clinical Impression: No deep vein thrombosis (DVT) Patient Disposition: NH Longterm/Asst Living Condition: Stable Additional Instructions: The DVT ultrasound of your left leg today does not show any blood clot; please follow-up with your orthopedic surgeon, you can always return to the ER for any further issues. Patient Language: Kyrgyz Prescriptions: No Action amlodipine 2.5 mg tablet 2.5 mg PO DAILY aspirin [Adult Low Dose Aspirin] 81 mg tablet,delayed release (DR/EC) 81 mg PO DAILY citalopram 20 mg tablet 20 mg PO DAILY lisinopril 40 mg tablet 40 mg PO DAILY solifenacin 5 mg tablet 5 mg PO DAILY omeprazole 20 mg capsule,delayed release(DR/EC) 20 mg PO DAILY Zyrtec 10 mg capsule 10 mg PO DAILY PRN (Reason: allergy symptoms) acetaminophen 325 mg capsule 650 mg PO Q6H PRN (Reason: fever or pain) bisacodyl 5 mg tablet,delayed release (DR/EC) 10 mg PO DAILY PRN (Reason: constipation) alum-mag hydroxide-simeth [Jess-Lanta] 400-400-40 mg/5 mL suspension 30 ml PO QID calcium carbonate [Oyster Shell Calcium] 500 mg calcium (1,250 mg) tablet 500 mg PO BID divalproex 125 mg capsule, delayed rel sprinkle 250 mg PO HS Healthy Eyes 300 mcg-200 mg-27 mg-2 mg tablet 1 tablet PO BID Rx Instructions: administer after a meal mupirocin 2 % ointment 1 applic TOPICAL BID Rx Instructions: Right shoulder and upper back. calcium carbonate-vitamin D3 [Calcium 500 + D] 500 mg-10 mcg (400 unit) tablet 1 tablet PO TID diphenhydramine HCl [Allergy (diphenhydramine)] 25 mg capsule 25 mg PO Q6H PRN (Reason: allergy symptoms) Follow-up/Referrals: UNKNOWN,DOCTOR [Primary Care Provider]
[2025-02-17 20:00] VITALS: RESP 18
== END 2025-02-17 20:00 | disposition home or self-care (01) ==
LOC: ANHED 19:53
PROVIDERS: Emergency Provider Emergency Medicine
DX: R22.42 Localized swelling, mass and lump, left lower limb (principal)
CPT/HCPCS: 93971; 99284